=== PATIENT | female | born 1990 | race Caucasian/White ===

== ENCOUNTER → 2024-10-19 06:48 | Outpatient (CLI) | payer BC, SELFPAY | PROVIDERS: PCP Family Medicine; Referring Provider Family Medicine; Visit Provider Family Medicine | DX: J45.901 Unspecified asthma with (acute) exacerbation (principal); R06.02 Shortness of breath; F17.210 Nicotine dependence, cigarettes, uncomplicated; R94.2 Abnormal results of pulmonary function studies | CPT/HCPCS: 94060; 94726; 94729 ==

== ENCOUNTER → 2025-01-01 08:56 | Outpatient (CLI) | payer BC, SELFPAY | PROVIDERS: PCP Family Medicine; Visit Provider Family Medicine | DX: R35.0 Frequency of micturition (principal); R30.9 Painful micturition, unspecified | CPT/HCPCS: 87077; 87086; 87186 ==

== ENCOUNTER → 2025-05-25 09:46 | Outpatient (CLI) | payer BC, SELFPAY ==
[2025-05-25 10:27] LABS: Add Manual Diff / Slide Review NO; Hematocrit 44.7 % (36-46); Hemoglobin 15.4 g/dL (12.0-16.0); Lymphocytes Absolute Auto 1200 /uL (1100-4500); Mean Corpuscular HGB Conc 34.5 % (30-36); Mean Corpuscular Hemoglobin 30.5 PG (26-34); Mean Corpuscular Volume 88.6 fL (80-100); Platelet Count 264 X10^3/uL (150-400)
[2025-05-25 10:38] LABS: Hemoglobin A1C% w Est Avg Glu 5.1 % (4.0-6.0)
[2025-05-25 10:49] LABS: HEMOLYSIS < 15 (0-50); Iron 127 ug/dL (37-170)
[2025-05-25 10:53] LABS: Alanine Aminotransferase 19 IU/L (<35); Albumin 4.7 g/dL (3.5-5.0); Albumin Globulin Ratio 1.5 (1.0-2.8); Alkaline Phosphatase 53 U/L (38-126); Blood Urea Nitrogen 13 mg/dL (7-17); Calcium 8.9 mg/dL (8.4-10.2); Carbon Dioxide 24 mmol/L (22-32); Chloride 103 mmol/L (98-107); Cholesterol 236 mg/dL (140-199); Estimated Glomerular Filt Rate > 60 mL/min (>60); Globulin 3.1 g/dL (1.7-4.1); Glucose 113 mg/dL (70-99); HDL Cholesterol 77 mg/dL (40-60); HEMOLYSIS < 15 (0-50); Potassium 4.3 mmol/L (3.4-5.1); Sodium 137 mmol/L (137-145); Total Protein 7.8 g/dL (6.3-8.2); Triglycerides 58 mg/dL (35-150)
[2025-05-25 11:02] LABS: Percent Iron Saturation 38 % (15-50); Total Iron Binding Capacity 331 ug/dL (265-497); Transferrin 294 mg/dL (206-381)
[2025-05-25 11:20] LABS: TSH w/ Reflex to FT4 1.53 uIU/mL (0.47-4.68)
[2025-05-25 11:26] LABS: Ferritin 78 ng/mL (6-137)
[2025-05-25 11:40] LABS: Vitamin B12 Reflex MMA if <400 539 pg/mL (239-931)
== END ==
PROVIDERS: PCP Family Medicine; Referring Provider Family Medicine; Visit Provider Family Medicine
DX: Z13.220 Encounter for screening for lipoid disorders (principal); Z13.1 Encounter for screening for diabetes mellitus; R53.83 Other fatigue; R52 Pain, unspecified; M25.50 Pain in unspecified joint
CPT/HCPCS: 36415; 80053; 80061; 82607; 82728; 83036; 83540; 83550; 84443; 85025; 85651; 86038; 86140; 86430

== ENCOUNTER → 2025-06-28 09:23 | Outpatient (CLI) | payer BC, SELFPAY | PROVIDERS: PCP Family Medicine; Referring Provider Internal Medicine; Visit Provider Internal Medicine | DX: J45.50 Severe persistent asthma, uncomplicated (principal) | CPT/HCPCS: 36415; 82785; 86003 ==